=== PATIENT | female | born 1955 | race Caucasian/White ===

== ENCOUNTER 2017-07-06 20:52 | Inpatient (IN) | payer OTHER ==
[2017-07-06] MEDS: morphine 2 MG INJ IV (22:03)
[2017-07-06] MEDS: DEXTROSE 5%-0.45% NACL 1,000 ML IV (22:03)
[2017-07-07] MEDS ORDERED: METOCLOPRAMIDE 10 MG INJ IV
[2017-07-07] MEDS: ZOLPIDEM 5 MG TAB PO (00:46)
[2017-07-07] MEDS: METOCLOPRAMIDE 10 MG INJ IV ×3 (00:51→19:35)
[2017-07-07] MEDS: DEXTROSE 5%-0.45% NACL 1,000 ML IV ×2 (08:19→17:52)
[2017-07-07] MEDS: morphine 2 MG INJ IV ×2 (14:50→19:35)
[2017-07-07] MEDS: PANTOPRAZOLE (EC) 40 MG TAB PO (14:55)
[2017-07-07] MEDS: DIPHENHYDRAMINE 25 MG CAP PO (17:50)
[2017-07-07] MEDS: NYSTATIN 30 GM POWDER BTL TOP (21:26)
[2017-07-08] MEDS: DEXTROSE 5%-0.45% NACL 1,000 ML IV ×2 (03:05→13:20)
[2017-07-08] MEDS: PANTOPRAZOLE (EC) 40 MG TAB PO (05:28)
[2017-07-08 05:46] LABS: ADD MAN DIFF? NO
[2017-07-08 05:56] LABS: ABNORMAL IP MESSAGE 1; BASOPHIL # 0.1 10^3/ul (0.0-0.1); BASOPHILS % 0.5 % (0.0-2.0); EOSINOPHILS # 13.9 10^3/ul (0.0-0.5); EOSINOPHILS % 56.2 % (0.0-7.0); HEMATOCRIT 27.6 % (37.0-47.0); HEMOGLOBIN 9.5 g/dl (12.0-16.0); LYMPHOCYTES # 2.2 10^3/ul (0.8-2.9); LYMPHOCYTES % 8.9 % (15.0-51.0); MEAN CORPUSCULAR HEMOGLOBIN 31.6 pg (29.0-33.0); MEAN CORPUSCULAR HGB CONC 34.4 g/dl (32.0-37.0); MEAN CORPUSCULAR VOLUME 91.7 fl (82.0-101.0); MEAN PLATELET VOLUME 9.5 fl (7.4-10.4); MONOCYTE # 1.7 10^3/ul (0.3-0.9); MONOCYTES % 6.8 % (0.0-11.0); NEUTROPHIL # 6.6 10^3/ul (1.6-7.5); NEUTROPHILS % 26.8 % (39.0-77.0); NUCLEATED RED BLOOD CELLS% 0.1 /100WBC (0.0-0.0); PLATELET COUNT 191 10^3/UL (140-415); RED BLOOD COUNT 3.01 10^6/ul (4.20-5.40); RED CELL DISTRIBUTION WIDTH 18.7 % (11.5-14.5)
[2017-07-08 05:56] LABS: WHITE BLOOD COUNT 24.7 10^3/ul (4.8-10.8)
[2017-07-08] MEDS ORDERED: PANTOPRAZOLE (EC) 40 MG TAB PO (06:00)
[2017-07-08 06:10] LABS: POSITIVE DIFF @See below
[2017-07-08 06:14] LABS: ANION GAP 8 (8-16); BLOOD UREA NITROGEN 6 mg/dl (7-20); CALCIUM 7.7 mg/dl (8.4-10.2); CARBON DIOXIDE 25 mmol/L (21-31); CHLORIDE 103 mmol/L (97-110); CREATININE 0.56 mg/dl (0.44-1.00); GLUCOSE 106 mg/dl (70-220); MAGNESIUM 1.6 mg/dl (1.7-2.5); PHOSPHORUS 2.5 mg/dl (2.5-4.9); SODIUM 133 mmol/L (135-144)
[2017-07-08 06:20] LABS: POTASSIUM 2.9 mmol/L (3.5-5.1)
[2017-07-08] MEDS: METOCLOPRAMIDE 10 MG INJ IV ×2 (08:43→17:58)
[2017-07-08] MEDS: POTASSIUM CHLORIDE (SR) 20 MEQ TAB PO ×2 (08:44→20:50)
[2017-07-08] MEDS: NYSTATIN 30 GM POWDER BTL TOP ×2 (08:46→20:50)
[2017-07-08] MEDS: morphine 2 MG INJ IV ×4 (11:36→21:56)
[2017-07-08] MEDS ORDERED: CEFTRIAXONE 1 GM/50 ML (PMX) 50 ML IVPB (15:00)
[2017-07-08] MEDS: LEVOFLOXACIN 500MG/D5W (PMX) 100 ML IVPB (15:23)
[2017-07-08] MEDS: MAGNESIUM OXIDE 400 MG TAB PO ×2 (15:23→20:49)
[2017-07-08 18:15] LABS: ADD UMIC YES; UR ASCORBIC ACID NEGATIVE (NEGATIVE); UR BILIRUBIN (Dip) NEGATIVE (NEGATIVE); UR BLOOD (Dip) NEGATIVE (NEGATIVE); UR CLARITY CLEAR (CLEAR); UR COLOR YELLOW (YELLOW); UR GLUCOSE (Dip) NEGATIVE (NEGATIVE); UR KETONES (Dip) NEGATIVE (NEGATIVE); UR LEUKOCYTE ESTERASE (Dip) NEGATIVE Leu/ul (NEGATIVE); UR MUCUS FEW /HPF (NONE SEEN); UR NITRITE (Dip) NEGATIVE (NEGATIVE); UR RBC 1 /HPF (0-5); UR TOTAL PROTEIN (Dip) 2+ mg/dl (NEGATIVE); UR UROBILINOGEN (Dip) 2+ mg/dL (NEGATIVE); UR WBC 3 /HPF (0-5)
[2017-07-08] MEDS ORDERED: D5-NS + KCL 20 MEQ 1,000 ML IV (18:30)
[2017-07-08] MEDS: POTASSIUM CHLORIDE 30 MEQ in DEXTROSE 5%-0.9% NACL 1,000 ML IV (20:49)
[2017-07-08] MEDS: ZOLPIDEM 5 MG TAB PO (23:36)
[2017-07-08] MEDS: hydrALAzine 20 MG INJ IV (23:37)
[2017-07-09] MEDS: POTASSIUM CHLORIDE 30 MEQ in DEXTROSE 5%-0.9% NACL 1,000 ML IV (05:40)
[2017-07-09] MEDS: PANTOPRAZOLE (EC) 40 MG TAB PO (05:40)
[2017-07-09 05:41] LABS: WHITE BLOOD COUNT 21.5 10^3/ul (4.8-10.8)
[2017-07-09 05:41] LABS: ABNORMAL IP MESSAGE 1; HEMATOCRIT 28.2 % (37.0-47.0); HEMOGLOBIN 9.8 g/dl (12.0-16.0); MEAN CORPUSCULAR HEMOGLOBIN 31.8 pg (29.0-33.0); MEAN CORPUSCULAR HGB CONC 34.8 g/dl (32.0-37.0); MEAN CORPUSCULAR VOLUME 91.6 fl (82.0-101.0); MEAN PLATELET VOLUME 10.2 fl (7.4-10.4); NUCLEATED RED BLOOD CELLS% 0.1 /100WBC (0.0-0.0); PLATELET COUNT 197 10^3/UL (140-415); RED BLOOD COUNT 3.08 10^6/ul (4.20-5.40); RED CELL DISTRIBUTION WIDTH 18.8 % (11.5-14.5)
[2017-07-09 06:27] LABS: ANION GAP 8 (8-16); BLOOD UREA NITROGEN 4 mg/dl (7-20); CALCIUM 7.4 mg/dl (8.4-10.2); CARBON DIOXIDE 25 mmol/L (21-31); CHLORIDE 105 mmol/L (97-110); CREATININE 0.47 mg/dl (0.44-1.00); GLUCOSE 109 mg/dl (70-220); MAGNESIUM 1.6 mg/dl (1.7-2.5); PHOSPHORUS 2.5 mg/dl (2.5-4.9); POTASSIUM 3.2 mmol/L (3.5-5.1); SODIUM 135 mmol/L (135-144)
[2017-07-09 07:04] LABS: POSITIVE DIFF @See below
[2017-07-09 07:05] LABS: ADD MAN DIFF? YES
[2017-07-09] MEDS: MAGNESIUM OXIDE 400 MG TAB PO ×2 (08:50→20:27)
[2017-07-09] MEDS: NYSTATIN 30 GM POWDER BTL TOP ×2 (08:51→20:27)
[2017-07-09] MEDS: ENOXAPARIN 40 MG/0.4 ML SYG SC (08:52)
[2017-07-09] MEDS ORDERED: D5-NS + KCL 40 MEQ 1,000 ML IV (09:30)
[2017-07-09] MEDS: METOCLOPRAMIDE 10 MG INJ IV ×2 (09:55→16:29)
[2017-07-09] MEDS: D5-NS + KCL 40 MEQ 1,000 ML IV ×3 (10:00→20:00)
[2017-07-09 10:09] LABS: ANISOCYTOSIS 1+ (0-0); BAND NEUTROPHILS #M 0.6 10^3/ul (0.0-0.6); BAND NEUTROPHILS % (M) 3 % (0-4); BASOPHIL #M 0.6 10^3/ul (0.0-0.0); BASOPHILS % (M) 3 % (0-2); EOSINOPHILS % (M) 54 % (0-7); GIANT THROMBO% (M) 1 % (0-0); LYMPHOCYTES #M 0.6 10^3/ul (0.8-2.9); LYMPHOCYTES % (M) 3 % (15-51); METAMYELOCYTES #M 0.2 10^3/ul (0.0-0.0); METAMYELOCYTES %M 1 % (0-0); MONOCYTE #M 1.2 10^3/ul (0.3-0.9); MONOCYTES % (M) 6 % (0-11); PLATELET ESTIMATE NORMAL; POLYCHROMASIA 1+ (0-0); SEG NEUT #M 6.6 10^3/ul (1.6-7.5); SEGMENTED NEUTROPHILS (M) % 30 % (39-77); SMUDGE%M 2 % (0-0)
[2017-07-09] MEDS: morphine 2 MG INJ IV ×3 (13:22→20:27)
[2017-07-09] MEDS: ONDANSETRON INJ 8 MG in DEXTROSE 5% 50 ML IV ×2 (14:10→22:27)
[2017-07-09] MEDS: ZOLPIDEM 5 MG TAB PO (22:26)
[2017-07-10] MEDS: D5-NS + KCL 40 MEQ 1,000 ML IV ×3 (03:32→14:34)
[2017-07-10 06:00] LABS: ABNORMAL IP MESSAGE 1; HEMATOCRIT 28.2 % (37.0-47.0); HEMOGLOBIN 9.5 g/dl (12.0-16.0); MEAN CORPUSCULAR HEMOGLOBIN 31.7 pg (29.0-33.0); MEAN CORPUSCULAR HGB CONC 33.7 g/dl (32.0-37.0); MEAN PLATELET VOLUME 9.7 fl (7.4-10.4); PLATELET COUNT 199 10^3/UL (140-415); RED CELL DISTRIBUTION WIDTH 19.3 % (11.5-14.5)
[2017-07-10 06:00] LABS: WHITE BLOOD COUNT 21.7 10^3/ul (4.8-10.8)
[2017-07-10] MEDS: PANTOPRAZOLE (EC) 40 MG TAB PO (06:01)
[2017-07-10 06:14] LABS: ADD MAN DIFF? YES; POSITIVE DIFF @See below
[2017-07-10 06:17] LABS: ANION GAP 11 (8-16); BLOOD UREA NITROGEN 4 mg/dl (7-20); CALCIUM 7.6 mg/dl (8.4-10.2); CARBON DIOXIDE 23 mmol/L (21-31); CHLORIDE 108 mmol/L (97-110); CREATININE 0.52 mg/dl (0.44-1.00); GLUCOSE 95 mg/dl (70-220); MAGNESIUM 1.6 mg/dl (1.7-2.5); PHOSPHORUS 2.5 mg/dl (2.5-4.9); SODIUM 138 mmol/L (135-144)
[2017-07-10] MEDS: NYSTATIN 30 GM POWDER BTL TOP ×2 (07:53→20:19)
[2017-07-10] MEDS: MAGNESIUM OXIDE 400 MG TAB PO ×2 (07:53→20:19)
[2017-07-10] MEDS: ENOXAPARIN 40 MG/0.4 ML SYG SC (07:59)
[2017-07-10] MEDS: morphine 2 MG INJ IV ×3 (08:33→18:27)
[2017-07-10] MEDS: ONDANSETRON INJ 8 MG in DEXTROSE 5% 50 ML IV (08:33)
[2017-07-10 09:37] LABS: ANISOCYTOSIS 1+ (0-0); BAND NEUTROPHILS #M 1.7 10^3/ul (0.0-0.6); BAND NEUTROPHILS % (M) 8 % (0-4); BASOPHIL #M 0.6 10^3/ul (0.0-0.0); BASOPHILS % (M) 3 % (0-2); EOSINOPHILS % (M) 53 % (0-7); LYMPHOCYTES % (M) 5 % (15-51); MONOCYTE #M 1.7 10^3/ul (0.3-0.9); MONOCYTES % (M) 8 % (0-11); PLATELET ESTIMATE NORMAL; POLYCHROMASIA 3+ (0-0); SEG NEUT #M 5.4 10^3/ul (1.6-7.5); SEGMENTED NEUTROPHILS (M) % 23 % (39-77); SMUDGE%M 9 % (0-0)
[2017-07-10] MEDS: METOCLOPRAMIDE 10 MG INJ IV ×2 (12:12→18:26)
[2017-07-10] MEDS ORDERED: IODIXANOL LOCM 100 ML BTL (18:37)
[2017-07-10] MEDS ORDERED: SOD CHLORIDE 0.9% 100 ML (18:37)
[2017-07-11] MEDS: morphine 2 MG INJ IV ×3 (00:12→17:17)
[2017-07-11] MEDS: METOCLOPRAMIDE 10 MG INJ IV ×2 (00:29→08:51)
[2017-07-11] MEDS: D5-NS + KCL 40 MEQ 1,000 ML IV ×3 (02:24→22:00)
[2017-07-11] MEDS: PANTOPRAZOLE (EC) 40 MG TAB PO (06:05)
[2017-07-11] MEDS: MAGNESIUM OXIDE 400 MG TAB PO ×2 (08:51→20:53)
[2017-07-11] MEDS: NYSTATIN 30 GM POWDER BTL TOP ×2 (08:52→20:54)
[2017-07-11] MEDS: ENOXAPARIN 40 MG/0.4 ML SYG SC (08:58)
[2017-07-11] MEDS: ONDANSETRON INJ 8 MG in DEXTROSE 5% 50 ML IV ×2 (11:03→18:16)
[2017-07-11 11:13] LABS: ABNORMAL IP MESSAGE 1; HEMATOCRIT 28.8 % (37.0-47.0); HEMOGLOBIN 9.7 g/dl (12.0-16.0); MEAN CORPUSCULAR HGB CONC 33.7 g/dl (32.0-37.0); MEAN PLATELET VOLUME 10.2 fl (7.4-10.4); PLATELET COUNT 174 10^3/UL (140-415); RED BLOOD COUNT 3.03 10^6/ul (4.20-5.40); RED CELL DISTRIBUTION WIDTH 19.9 % (11.5-14.5)
[2017-07-11 11:13] LABS: WHITE BLOOD COUNT 18.1 10^3/ul (4.8-10.8)
[2017-07-11 11:15] LABS: ADD MAN DIFF? YES; POSITIVE DIFF @See below
[2017-07-11] MEDS ORDERED: BISACODYL (EC) 5 MG TAB PO (11:30)
[2017-07-11 11:42] LABS: ALANINE AMINOTRANSFERASE 27 IU/L (13-69); ALBUMIN 2.2 g/dl (3.3-4.9); ALBUMIN/GLOBULIN RATIO 0.52; ALKALINE PHOSPHATASE 479 IU/L (42-121); ANION GAP 9 (8-16); ASPARTATE AMINO TRANSFERASE 53 IU/L (15-46); BILIRUBIN,INDIRECT 0.2 mg/dl (0-1.1); BILIRUBIN,TOTAL 0.2 mg/dl (0.2-1.3); BLOOD UREA NITROGEN 3 mg/dl (7-20); CALCIUM 7.8 mg/dl (8.4-10.2); CARBON DIOXIDE 24 mmol/L (21-31); CHLORIDE 107 mmol/L (97-110); CREATININE 0.57 mg/dl (0.44-1.00); GLUCOSE 112 mg/dl (70-220); SODIUM 135 mmol/L (135-144); TOTAL PROTEIN 6.4 g/dl (6.1-8.1)
[2017-07-11] MEDS: BISACODYL (EC) 5 MG TAB PO (12:41)
[2017-07-11 12:47] LABS: ANISOCYTOSIS 1+ (0-0); BAND NEUTROPHILS #M 0.5 10^3/ul (0.0-0.6); BAND NEUTROPHILS % (M) 3 % (0-4); BASOPHIL #M 0.1 10^3/ul (0.0-0.0); BASOPHILS % (M) 1 % (0-2); DIMORPHIC RBC 1+ (0-0); EOSINOPHILS % (M) 52 % (0-7); ERYTHROBLAST% (NRBC) (M) 1 % (0-0); GIANT THROMBO% (M) 3 % (0-0); LYMPHOCYTES % (M) 6 % (15-51); MONOCYTE #M 0.5 10^3/ul (0.3-0.9); MONOCYTES % (M) 3 % (0-11); MYELOCYTES #M 0.1 10^3/ul (0.0-0.0); MYELOCYTES % (M) 1 % (0-0); PLATELET ESTIMATE NORMAL; POLYCHROMASIA 1+ (0-0); PROMYELOCYTES #M 0.1 10^3/ul (0-0); PROMYELOCYTES % (M) 1 % (0-0); REACTIVE LYMPHOCYTES #M 0.5 10^3/ul (0.0-0.0); REACTIVE LYMPHOCYTES% (M) 3 % (0-0); SEG NEUT #M 5.9 10^3/ul (1.6-7.5); SEGMENTED NEUTROPHILS (M) % 32 % (39-77); SMUDGE%M 7 % (0-0)
[2017-07-11] MEDS: PROCHLORPERAZINE 5 MG TAB PO ×2 (13:54→20:53)
[2017-07-11] MEDS: FENTAnyl PATCH 12 MCG/HR TRANSDERM (13:56)
[2017-07-11] MEDS: LORAZEPAM 1 MG TAB PO (19:09)
[2017-07-12] MEDS: morphine 2 MG INJ IV ×3 (00:59→20:46)
[2017-07-12] MEDS: D5-NS + KCL 40 MEQ 1,000 ML IV ×4 (01:04→21:03)
[2017-07-12] MEDS: PANTOPRAZOLE (EC) 40 MG TAB PO (06:51)
[2017-07-12] MEDS: NYSTATIN 30 GM POWDER BTL TOP ×2 (08:32→20:45)
[2017-07-12] MEDS: PROCHLORPERAZINE 5 MG TAB PO ×3 (08:32→20:45)
[2017-07-12] MEDS: BISACODYL (EC) 5 MG TAB PO (08:32)
[2017-07-12] MEDS: MAGNESIUM OXIDE 400 MG TAB PO ×2 (08:32→20:45)
[2017-07-12] MEDS: ENOXAPARIN 40 MG/0.4 ML SYG SC (09:14)
[2017-07-13] MEDS: PANTOPRAZOLE (EC) 40 MG TAB PO (06:31)
[2017-07-13] MEDS: D5-NS + KCL 40 MEQ 1,000 ML IV ×3 (06:31→23:11)
[2017-07-13] MEDS: PROCHLORPERAZINE 5 MG TAB PO ×3 (08:17→20:57)
[2017-07-13] MEDS: BISACODYL (EC) 5 MG TAB PO (08:17)
[2017-07-13] MEDS: MAGNESIUM OXIDE 400 MG TAB PO ×2 (08:17→20:57)
[2017-07-13] MEDS: morphine 2 MG INJ IV (08:18)
[2017-07-13] MEDS: NYSTATIN 30 GM POWDER BTL TOP ×2 (08:20→20:57)
[2017-07-13] MEDS: ENOXAPARIN 40 MG/0.4 ML SYG SC (08:25)
[2017-07-13] MEDS: METOCLOPRAMIDE 10 MG INJ IV (12:48)
[2017-07-13] MEDS: AMLODIPINE 5 MG TAB PO (12:54)
[2017-07-13] MEDS: ZOLPIDEM 5 MG TAB PO (20:57)
[2017-07-13] MEDS: KETOROLAC 15 MG INJ IV (20:57)
[2017-07-14] MEDS: PANTOPRAZOLE (EC) 40 MG TAB PO (05:05)
[2017-07-14] MEDS: D5-NS + KCL 40 MEQ 1,000 ML IV (05:05)
[2017-07-14] MEDS: morphine 2 MG INJ IV (05:24)
[2017-07-14] MEDS: PROCHLORPERAZINE 5 MG TAB PO ×2 (08:43→12:19)
[2017-07-14] MEDS: MAGNESIUM OXIDE 400 MG TAB PO (08:43)
[2017-07-14] MEDS: BISACODYL (EC) 5 MG TAB PO (08:43)
[2017-07-14] MEDS: AMLODIPINE 5 MG TAB PO (08:44)
[2017-07-14] MEDS: NYSTATIN 30 GM POWDER BTL TOP (08:44)
[2017-07-14] MEDS: ENOXAPARIN 40 MG/0.4 ML SYG SC (08:46)
== END 2017-07-14 18:15 | disposition home or self-care (01) | DRG 435 ==
LOC: MS2 20:52
DX: C25.9 Malignant neoplasm of pancreas, unspecified (principal); E43 Unspecified severe protein-calorie malnutrition; C78.00 Secondary malignant neoplasm of unspecified lung; E83.42 Hypomagnesemia; C78.7 Secondary malignant neoplasm of liver and intrahepatic bile duct; Z68.1 Body mass index [BMI] 19.9 or less, adult; E87.6 Hypokalemia; R11.2 Nausea with vomiting, unspecified
CPT/HCPCS: 71275; 74018; 80048; 80053; 81001; 83735; 84100; 85025